=== PATIENT | female | born 1975 | race Caucasian/White ===

== ENCOUNTER 2020-03-05 12:41 | Emergency (ER) | payer MEDICAID ==
[~2020-03-05] VITALS: Ht 177.8 cm; Wt 60.3 kg
[2020-03-05 12:50] VITALS: BP 130/70
--- NOTE | 2020-03-05 12:50 | NUR ---
ED Nurse Note: PT walked in to ED for C/O vertigo since 03/01/20. pt reports her vertigo has gotten worse today. pt has prescription for meclizine 35mg but has not been taking the medication because pt is worrie about side effect of medication.
--- NOTE | 2020-03-05 13:45 | NUR ---
ED Nurse Note: urine abd blood sample collected and sent to lab
[2020-03-05 14:01] LABS: APPEARANCE,URINE CLEAR; BILIRUBIN, URINE NEGATIVE (NEGATIVE); COLOR,URINE PALE YELLOW; GLUCOSE, URINE (UA) NEGATIVE (NEGATIVE); KETONES,URINE NEGATIVE (NEGATIVE); LEUKOCYTE ESTERASE ,URINE NEGATIVE (NEGATIVE); NITRITE,URINE NEGATIVE (NEGATIVE); PH,URINE 6.5 (4.5-8.0); PROTEIN,URINE NEGATIVE (NEGATIVE); UROBILINOGEN,URINE NORMAL MG/DL (0.0-1.0)
[2020-03-05 14:04] LABS: HEMATOCRIT 40.5 % (37.0-47.0); HEMOGLOBIN 14.2 G/DL (12.0-16.0); MEAN CORPUSCULAR VOLUME 86 FL (80-99); PLATELET COUNT 258 K/UL (150-450); RED BLOOD COUNT 4.71 M/UL (4.20-5.40); RED CELL DISTRIBUTION WIDTH 10.3 % (11.6-14.8); WHITE BLOOD COUNT 4.6 K/UL (4.8-10.8)
--- NOTE | 2020-03-05 14:18 | NUR ---
ED Nurse Note: x ray taken at bedside.
[2020-03-05 14:36] LABS: ANION GAP 6 mmol/L (5-15); BLOOD UREA NITROGEN 5 mg/dL (7-18); CALCIUM 9.3 MG/DL (8.5-10.1); CARBON DIOXIDE 30 MMOL/L (21-32); CHLORIDE 106 MMOL/L (98-107); CREATININE 0.7 MG/DL (0.55-1.30); POTASSIUM 3.3 MMOL/L (3.5-5.1); SODIUM 142 MMOL/L (136-145)
[2020-03-05 14:47] LABS: ALANINE AMINOTRANSFERASE 26 U/L (12-78); ALBUMIN 4.2 G/DL (3.4-5.0); ALBUMIN/GLOBULIN RATIO 1.6 (1.0-2.7); ALKALINE PHOSPHATASE 41 U/L (46-116); ASPARTATE AMINO TRANSFERASE 17 U/L (15-37); BILIRUBIN,TOTAL 0.6 MG/DL (0.2-1.0)
[2020-03-05] MEDS ORDERED: MECLIZINE HCL25 MG ORAL (14:58)
--- NOTE | 2020-03-05 15:00 | Diagnostic Imaging Report ---
Indications: Vertigo Technique: Spiral acquisitions obtained through the brain. Angled axial and coronal 5 x 5 mm slices were reconstructed. Total dose length product 1125 mGycm. CTDI vol(s) 53 mGy. Dose reduction achieved using automated exposure control Comparison: None. Findings: There is questionably a right frontal old [place] hole versus very prominent venous yañez, favor the latter. Otherwise intact calvarium. Visualized orbits and sinuses are unremarkable. The mastoids are clear. There is prominent extra-axial CSF the left side of the posterior fossa versus arachnoid cyst. There is generalized prominence of the ventricles and extra axial CSF spaces, particularly the latter, however proportional age. No acute intracranial hemorrhage or edema. No mass effect nor midline shift. Normal morris-white differentiation. Impression: Negative for acute intracranial bleed or mass effect Cerebral cortical volume loss, out of proportion to patient's age. Left cerebellar asymmetric cortical volume loss versus left posterior fossa arachnoid cyst The CT scanner at [facility] is accredited by the [employer] and the scans are performed using protocols designed to limit radiation exposure to as low as reasonably achievable to attain images of sufficient resolution adequate for diagnostic evaluation.
--- NOTE | 2020-03-05 15:06 | Emergency Room Report ---
History of Present Illness General Chief Complaint: Dizziness Source: Patient Present Illness HPI 45-year-old female with no symptom past medical history here complaining of 2 days of dizziness which is worse when kneeling down, head forward, and standing. Primary doctor prescribed meclizine however patient was scared to take it as patient has history of polycystic kidney disease and was not sure if that will interact with her kidneys. Patient denies chest pain, shortness of breath, palpitation, headache and dizziness. Denies any abdominal pain, nausea vomiting or diarrhea. Denies any head injury, tingling sensation in arms and legs. Denies any tobacco smoke, marijuana use, drug use, alcohol intake. Is sitting comfortably with stable vital signs. Denies any recent travel. Allergies: Coded Allergies: PENICILLINS (Verified Allergy, Unknown, 03/05/20) COVID-19 Screening Contact w/high risk pt: No Recent Travel to affected area: No Experienced COVID-19 symptoms?: No COVID-19 Testing performed ENGRAVER PICTURE: No Patient History Past Medical History: see triage record Past Surgical History: none Pertinent Family History: none Last Menstrual Period: 02/29/20 Now: No Immunizations: UTD Reviewed Nursing Documentation: PMH: Agreed; PSxH: Agreed Nursing Documentation-PMH Past Medical History: No History, Except For Hx Asthma: Yes Review of Systems All Other Systems: negative except mentioned in HPI Physical Exam Vital Signs Date Time Temp Pulse Resp B/P (MAP) Pulse Ox O2 Delivery O2 Flow Rate FiO2 03/05/20 12:44 99.0 92 19 136/76 (96) 97 Room Air Sp02 EP Interpretation: reviewed, normal General Appearance: no apparent distress, alert, GCS 15, non-toxic Head: normocephalic, atraumatic Eyes: bilateral eye normal inspection, bilateral eye PERRL ENT: hearing grossly normal, normal pharynx, no angioedema, normal voice Neck: full range of motion, supple/symm/no masses Respiratory: chest non-tender, lungs clear, normal breath sounds, no rhonchi, speaking full sentences Cardiovascular #1: regular rate, rhythm, no edema, no murmur Cardiovascular #2: 2+ radial (R), 2+ radial (L) Gastrointestinal: normal bowel sounds, non tender, soft, non-distended, no guarding, no rebound Rectal: deferred Musculoskeletal: back normal, no calf tenderness Neurologic: alert, motor strength/tone normal, oriented x3, sensory intact, responsive, speech normal Psychiatric: judgement/insight normal, memory normal, mood/affect normal, no suicidal/homicidal ideation Skin: no rash Lymphatic: no adenopathy Medical Decision Making PA Attestation All my diagnosis and treatment plans were reviewed ad discussed with my supervising physician Dr. Holloway Diagnostic Impression: Primary Impression: Dizziness ER Course 45-year-old female with no symptom past medical history here complaining of 2 days of dizziness which is worse when kneeling down, head forward, and standing. Primary doctor prescribed meclizine however patient was scared to take it as patient has history of polycystic kidney disease and was not sure if that will interact with her kidneys. Patient denies chest pain, shortness of breath, palpitation, headache and dizziness. Denies any abdominal pain, nausea vomiting or diarrhea. Denies any head injury, tingling sensation in arms and legs. Denies any tobacco smoke, marijuana use, drug use, alcohol intake. Is sitting comfortably with stable vital signs. Denies any recent travel. Ddx considered but are not limited to: Dizziness due to alcohol intoxication, dizziness unspecified, dizziness due to head trauma, dizziness secondary to cardiac reasons Vital signs: are WNL, pt. is afebrile H&PE are most consistent with: Dizziness of unknown cause ORDERS: CBC, CMP, UA, PT, PTT, troponin, EKG, BMP, chest x-ray, head CT no contrast, ER intervention: NS bolus DISCHARGE: At this time pt. is stable for d/c to home. Will provide printed patient care instructions, and any necessary prescriptions. Care plan and follow up instructions have been discussed with the patient prior to discharge. Patient was advised to start taking meclizine, at this time no acute causes of dizziness noted however advised patient to follow primary doctor for referral to both ENT, programming coordinator, as well as neurologist if symptoms continue. If worsening symptoms return to emergency room EKG Diagnostic Results Rate: normal Rhythm: NSR ST Segments: no acute changes Other Impression No acute ST changes Chest X-Ray Diagnostic Results Chest X-Ray Diagnostic Results : Chest X-Ray Ordered: Yes # of Views/Limited/Complete: 1 View Indication: Other EP Interpretation: Yes PA Xray: Interpretation reviewed, by supervising MD, and agrees with findings. Interpretation: no consolidation, no effusion, no pneumothorax Impression: No acute disease Electronically Signed by: Zachary Rey PA-C CT/MRI/US Diagnostic Results CT/MRI/US Diagnostic Results : Imaging Test Ordered: Head CT no contrast Impression Within normal limits, no intracranial bleed Last Vital Signs Date Time Temp Pulse Resp B/P (MAP) Pulse Ox O2 Delivery O2 Flow Rate FiO2 03/05/20 12:44 99.0 92 19 136/76 (96) 97 Room Air Disposition: HOME, SELF-CARE Condition: Stable Patient Instructions: Vertigo, Dizziness Additional Instructions: Take medication as directed, follow-up with primary doctor, you may need to have your primary doctor send you to a neurologist if the symptoms continue. If worsening symptoms return to the emergency room Zachary Kevin Mar 05, 2020 15:06
[2020-03-05 15:23] VITALS: BP 128/80
--- NOTE | 2020-03-05 15:23 | NUR ---
ER DISCHARGE NOTE: Patient is cleared to be discharged per ERMD, pt is aox4, on room air, with stable vital signs. pt was given dc and prescription instructions, pt was able to verbalize understanding, pt id band and iv site removed without complications. pt is able to ambulate with steady gait. pt took all belongings.
--- NOTE | 2020-03-05 15:44 | Diagnostic Imaging Report ---
Indication: Shortness of breath Technique: One view of the chest Comparison: none Findings: Lungs and pleural spaces are clear. Heart size is normal. Impression: No acute process
== END 2020-03-05 15:23 | disposition home or self-care (01) ==
LOC: EMR 15:15
DX: R42 Dizziness and giddiness (principal); Z88.0 Allergy status to penicillin
CPT/HCPCS: 36415; 70450; 71045; 80053; 80307; 81003; 81025; 83880; 84484; 85007; 85025; 85610; 85730; 93005; Z7502; 99284